=== PATIENT | female | born 1970 | race Caucasian/White ===

== ENCOUNTER 2016-04-27 22:16 | Emergency (ER) | payer OTHER ==
[2016-04-27 22:16] VITALS: BMI 21.6
[2016-04-27 23:11] VITALS: RESP 20
[2016-04-27 23:49] LABS: RBC URINE 135 /hpf (0-3); URINE BACTERIA OCC (<OCC); URINE BILIRUBIN NEGATIVE (NEGATIVE); URINE BLOOD 3+ (NEGATIVE); URINE COLOR Yellow (YELLOW); URINE GLUCOSE (UA) NORMAL (Normal); URINE KETONE TRACE mg/dL (NEGATIVE); URINE LEUKOCYTE ESTERASE TRACE Leu/uL (Negative); URINE PROTEIN 1+ mg/dL (NEGATIVE); URINE UROBILINOGEN NORMAL mg/dL (0.2-1.0); WBC URINE 4 /hpf (0-5)
--- NOTE | 2016-04-28 00:19 | C.PDOC ---
History Of Present Illness 46 yo female w/o significant PMHx come in for evaluation of urinary frequency associated with Left flank pain gradually developed since today AM. Pt describes pain as dull over Left flank, localized. Otherwise, pt denies previous hx of kidney stone, fever, chills, recent illness, abd. pain, NV/D, hematuria vaginal discharge or irritation. Ambulate to ED for evaluation, not in any apparent distress. Time Seen by Provider: 04/27/16 23:11 Chief Complaint (Nursing): Female Genitourinary History Per: Patient Onset/Duration Of Symptoms: Gradual Current Symptoms Are (Timing): Worse Past Medical History Reviewed: Historical Data, Nursing Documentation, Vital Signs Vital Signs: Last Vital Signs Temp 98.4 F 04/27/16 23:07 Pulse 79 04/27/16 23:07 Resp 20 04/27/16 23:07 BP 145/91 H 04/27/16 23:07 Pulse Ox 98 04/28/16 00:22 - Medical History PMH: No Chronic Diseases Surgical History: No Surg Hx Family History: States: No Known Family Hx - Social History Hx Alcohol Use: No Hx Substance Use: No Review Of Systems Except As Marked, All Systems Reviewed And Found Negative. Constitutional: Negative for: Fever, Chills ENT: Negative for: Throat Pain Cardiovascular: Negative for: Chest Pain Respiratory: Negative for: Cough, Shortness of Breath Gastrointestinal: Negative for: Nausea, Vomiting, Abdominal Pain Genitourinary: Positive for: Dysuria, Frequency. Negative for: Incontinence, Hematuria, Vaginal Discharge, Vaginal Bleeding Musculoskeletal: Positive for: Other (Left flank pain) Skin: Negative for: Rash Neurological: Negative for: Weakness, Numbness, Headache, Dizziness Physical Exam - Physical Exam Appears: Well, No Acute Distress Skin: Normal Color, Warm, Dry, No Rash Eye(s): bilateral: Normal Inspection Ear(s): Bilateral: Normal Nose: Normal, No Discharge Oral Mucosa: Moist Throat: Normal, No Erythema, No Exudate, No Drooling Neck: Normal, Normal ROM, Supple Cardiovascular: Rhythm Regular Respiratory: Normal Breath Sounds, No Stridor, No Wheezing Gastrointestinal/Abdominal: Normal Exam, Soft, No Tenderness, No Distention, No Guarding Back: Normal Inspection, No CVA Tenderness, No Vertebral Tenderness, Other ( Left flank tenderness, no edema.) Extremity: Normal ROM, No Pedal Edema, No Deformity, No Swelling Neurological/Psych: Oriented x3, Normal Speech ED Course And Treatment O2 Sat by Pulse Oximetry: 98 Pulse Ox Interpretation: Normal - CT Scan/US CT abd/pelvis Other Rad Studies (CT/US): Radiology Report Reviewed CT/US Interpretation: EXAM: CT Abdomen and Pelvis Without Intravenous Contrast. CLINICAL HISTORY: 46 years old, female; Pain; Abdominal pain; Additional info: Left flank pain. TECHNIQUE: Axial computed tomography images of the abdomen and pelvis without intravenous contrast. This. CT exam was performed using one or more of the following dose reduction techniques: automated. exposure control, adjustment of the mA and/or kV according to patient size, and/or use of iterative. reconstruction technique. Coronal and sagittal reformatted images were created and reviewed. COMPARISON: No relevant prior studies available. FINDINGS: Lower thorax: No acute findings. ABDOMEN: Liver: Unremarkable. Gallbladder and bile ducts: Unremarkable. No calcified stones. No ductal dilation. Pancreas: Unremarkable. No ductal dilation. Spleen: Unremarkable. No splenomegaly. Adrenals: Unremarkable. No mass. Kidneys and ureters: 3 mm calculus at left ureterovesical junction. Series 2 image #80. Right. kidney is unremarkable. Mild left hydronephrosis. Multiple punctate left renal calculi. Mild left. perinephric stranding. Stomach and bowel: Unremarkable. No obstruction. Appendix: No findings to suggest acute appendicitis. PELVIS: Bladder: Unremarkable. No stones. Reproductive: Unremarkable as visualized. ABDOMEN and PELVIS: Intraperitoneal space: Unremarkable. No free air. No significant fluid collection. Bones/joints : Dextroscoliosis lumbar spine. Degenerative changes of lumbosacral spine. No acute. fracture. No dislocation. Soft tissues: Unremarkable. Vasculature: Atherosclerotic vascular disease. No abdominal aortic aneurysm. Lymph nodes: Unremarkable. No enlarged lymph nodes. IMPRESSION: 1. 3 mm left UVJ stone with mild left hydronephrosis and mild perinephric stranding. 2. Left nephrolithiasis. 3. Remainder of findings as above. Thank you for allowing us to participate in the care of your patient. Dictated and Authenticated by: Cristofer Shultz MD. 04/28/2016 12:58 AM Eastern Time ([place] & [place]) Progress Note: UA results review (+) hematuria. TC abd/pelvis offered to r/o kidney stones. Pt accepted. Pt admits, pain is 3/[address] abd/pelvis results review and c/w Left nephrolithiasis 3mm stone. results reiew and discussed with pt. On re-evaluation, pt is afebrile, hemodynamicaly stable. non-toxic. Tolerate PO well in ED. ABd: benign. back: (-) CVA tenderness. Pt advised and ref. to F/u with PMD and Urology in 1-2 days for re-evaluation. return to ED if any worsening or new changes. Disposition Counseled Patient/Family Regarding: Studies Performed, Diagnosis, Need For Followup, Rx Given - Disposition Referrals: Starr Spencer MD [Staff Provider] - Disposition: HOME/ ROUTINE Disposition Time: 01:10 Condition: STABLE Additional Instructions: ENCOURAGE FLUIDS STRAIN URINE EVERY TIME WITH URINATION, LOOK FOR STONE TAKE PAIN MEDICATION NEED FOLLOW UP WITH UROLOGY IN 1-2 DAYS FOR RE-EVALUATION. RETURN T O ED IF ANY WORSENING OR NEW CHANGES. Prescriptions: Tamsulosin [Flomax] 0.4 mg PO DAILY #14 cap Instructions: Kidney Stones (ED) - Clinical Impression Clinical Impression: Nephrolithiasis
[2016-04-28] MEDS ORDERED: Oxycodone/Acetaminophen 5/325 mg Tab PO STA (01:10)
[2016-04-28] MEDS ORDERED: Hydrocodone/Acetaminophen 5 mg /300 mg Tab PO STA (01:11)
[2016-04-28] MEDS ORDERED: Hydrocodone/Acetaminophen 5 mg /300 mg Tab PO ONE (02:08)
[2016-04-28 02:30] VITALS: BP 138/93; PULSE 74; TEMP 97.9; O2SAT 99
--- NOTE | 2016-04-28 19:03 | CT ---
PROCEDURE: CT Abdomen and Pelvis without intravenous contrast HISTORY: Left flank pain COMPARISON: None. TECHNIQUE: Contiguous helical/transaxial sections of the abdomen pelvis performed without oral or intravenous contrast material. Additional 2 dimensional sagittal and coronal reformats provided. Radiation dose: Total exam DLP = 268.14 mGy-cm. FINDINGS: LOWER THORAX: Lung bases clear. No infiltrate effusion or basilar pneumothorax. LIVER: Liver exhibits normal size and attenuation pattern. No mass collection or calcification seen. GALLBLADDER AND BILE DUCTS: Unremarkable. PANCREAS: Unremarkable. No gross lesion or ductal dilatation. SPLEEN: Unremarkable. ADRENALS: Unremarkable. No mass. KIDNEYS AND URETERS: Multiple tiny calculi seen throughout the upper pole left kidney and midpole right kidney. Tiny approximately 3 mm calculus left UVJ region with mild left-sided hydronephrosis. Mild on infiltration changes seen in the left perinephric and periureteral fat. VASCULATURE: Unremarkable. No aortic aneurysm. BOWEL: Evaluation of the bowel is somewhat limited due to the lack of oral contrast material. The stomach is distended with food debris liquid and air. Visualized loops of small bowel exhibit normal contour and caliber. No evidence acute mechanical small bowel obstruction. Large amount of stool seen within the colon consistent with constipation. APPENDIX: Normal-appearing appendix. PERITONEUM: Unremarkable. No free fluid. No free air. LYMPH NODES: Unremarkable. No enlarged lymph nodes. BLADDER: Urinary bladder is physiologically distended. No evidence of intraluminal urinary bladder calculi. REPRODUCTIVE: Uterus and adnexal structures unremarkable. BONES: Multilevel mild degenerative spondylosis of the lower thoracic and lumbar spine. Moderate dextroscoliosis centered at the the L2-L3 level. OTHER FINDINGS: None IMPRESSION: Bilateral on nephrolithiasis as described. Small approximately 3 mm calculus left UVJ region with mild left-sided hydronephrosis. Findings consistent with constipation. Concordant findings offered by a overnight radiology service.
== END 2016-04-28 02:26 | disposition home or self-care (01) ==
LOC: C.ER 22:16
DX: N13.2 Hydronephrosis with renal and ureteral calculous obstruction (principal)